=== PATIENT | male | born 1965 ===

== ENCOUNTER 2022-07-24 09:57 | Outpatient (REF) | payer BC, SELFPAY ==
--- NOTE | ~2022-07-24 | US_ITS ---
EXAMINATION: US ABDOMEN LIMITED WITH LIVER ELASTOGRAPHY CLINICAL INFORMATION: Abnormal LFTs. COMPARISON: None available. TECHNIQUE: Real-time imaging of the abdominal viscera. Noninvasive ultrasound liver fibrosis assessment is performed using Leatha ElastPQ point quantification shear wave elastography (2D-SWE) with a C5-2 MHz transducer. Multiple elastography samples are obtained. FINDINGS: PANCREAS: The pancreas is completely obscured by overlying gas. LIVER: The liver demonstrates normal size, contour and diffuse increased echogenicity. No focal lesion or intrahepatic biliary duct dilatation. The right lobe measures 14.4 cm in length. The left lobe measures 8.12 cm in length. Portal flow is hepatopedal. Shear wave liver elastography median stiffness is 1.73 m/s (reference: normal median stiffness is 1.3 m/s or less). IQR/median stiffness to assess sampling precision is 0.13 (reference: good quality data set is IQR/median stiffness of 0.15 or less). GALLBLADDER: There is a nonmobile echogenic small lesion along the inner gallbladder wall suggestive of adenomyomatosis, especially in the fundus. The gallbladder is physiologically distended without evidence of stones, sludge, polyps, wall thickening or pericholecystic fluid. COMMON BILE DUCT: Normal in caliber measuring 0.22 cm in diameter. RIGHT KIDNEY: Normal. No hydronephrosis. No renal calculi or focal parenchymal lesions. The kidney measures 11.3 cm in maximum dimension. FREE FLUID: None. US/US abdomen hogan w elastography IMPRESSION: 1. Hepatic steatosis without focal lesion. 2. Adenomyomatosis gallbladder fundus. No echogenic stones seen. 3. Liver elastography: Median liver stiffness measures 1.73 corresponding to cACLD (suggestive. REFERENCE: Society of Radiologists in Ultrasound Liver Stiffness Thresholds (2020): LIVER STIFFNESS THRESHOLDS: *Liver Stiffness equal or less than 1.3 m/s: High probability of being normal. *Liver Stiffness less than 1.7 m/s: In the absence of other known clinical signs, rules out compensated advanced chronic liver disease. *Liver Stiffness 1.7-2.1 m/s: Suggestive of compensated advanced chronic liver disease but need further test for confirmation. *Liver Stiffness over 2.1 m/s: Rules in compensated advanced chronic liver disease. *Liver Stiffness over 2.4 m/s: Suggestive of clinically significant portal hypertension. QUALITY OF DATA SET: *IQR/Median value equal or less than 0.15 implies a quality data set. *IQR/Median value over 0.15 implies a poor quality data set. SIGNIFICANT CHANGE FROM PRIOR EXAM: Significant change if liver stiffness measurement is 10% or greater from prior exam. OTHER CONSIDERATIONS: The stage of liver fibrosis may be overestimated in the setting of acute hepatitis, liver inflammation, elevated liver function tests, hepatic vascular congestion, obstructive cholestasis, non-fasting state, and infiltrative diseases such as amyloidosis and lymphoma. In some patients with NAFLD, the liver stiffness thresholds for compensated advanced chronic liver disease may be lower. In causes other than viral hepatitis and NAFLD, liver stiffness thresholds are not well established.
== END 2022-07-24 09:58 | disposition home or self-care (01) ==
LOC: HO.US 09:57
PROVIDERS: PCP Family Medicine; Visit Provider Family Medicine
DX: R74.8 Abnormal levels of other serum enzymes (principal)
CPT/HCPCS: 76705; 76981

== ENCOUNTER 2022-10-25 12:32 | Outpatient (REF) | payer BC, SELFPAY ==
[2022-10-25 17:05] LABS: Alanine Aminotransferase 23 U/L (0-40); Albumin Level 4.3 g/dL (3.5-5.0); Alkaline Phosphatase 52 U/L (39-117); Anion Gap 10 (12-20); Aspartate Amino Transferase 19 U/L (5-37); Bilirubin Total 1.2 mg/dL (0.0-1.0); Blood Urea Nitrogen 17 mg/dL (9-16); Calcium 9.8 mg/dL (8.4-10.2); Carbon Dioxide 27 mmol/L (22-29); Chloride 107 mmol/L (96-108); Estimated Glomerular Filt Rate > 60; Glucose Random 93 mg/dL (60-115); Potassium 4.2 mmol/L (3.3-5.1); Sodium 140 mmol/L (135-145); Total Protein 7.1 g/dL (6.5-8.0)
== END 2022-10-25 12:33 | disposition home or self-care (01) ==
LOC: HO.HMGCLDS 12:32
PROVIDERS: PCP Family Medicine; Visit Provider Family Medicine
DX: R74.8 Abnormal levels of other serum enzymes (principal)
CPT/HCPCS: 36415; 80053

== ENCOUNTER 2022-10-31 14:25 | Outpatient (AMB) | payer BC, SELFPAY ==
[2022-10-31 14:39] VITALS: BP 120/68; PULSE 85; O2SAT 99; BMI 23.7
--- NOTE | 2022-10-31 14:39 | MHC.PC.OV ---
Vital Signs 10/31/22 14:39 Height 5 ft 10 in Weight 165 lb BMI 23.7 BP 120/68 Blood Pressure Location Lt brachial Position Standing Pulse 85 Pulse Source Pulse Oximeter Pulse Oximetry (%) 99 Oxygen Delivery Method Room Air Intake Visit Reasons: f/u elevated liver enzymes Intake Note: Patient is here for follow up for labs. Allergies Seasonal Allergies Allergy (Verified 10/31/22 14:40) sneezing Tobacco use date assessed: 10/31/22 Dental Screening Dental Screen Date: 10/31/22 Did you have a dental visit in the last 12 months?: Yes Did you have a dental problem in the last 6 months where you did not have access to dental care?: No Was dental information given to patient?: Patient has dentist HPI f/u elevated liver enzymes HPI Details 57 y/o male presents to f/u elevated liver enzymes. Labs were drawn 10/25/22. Reviewed labs with pt. Liver enzymes now within normal range. 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 Yg Israel, Germaine Nava, Good Kwong and colleagues, with an educational dontae from [employer]. Physical exam (Primary Care) Vital Signs: Last Vital Signs Pulse 85 10/31/22 14:39 BP 120/68 10/31/22 14:39 Pulse Ox 99 10/31/22 14:39 Oxygen Delivery Method Room Air 10/31/22 14:39 BMI result Body Mass Index 26.5 Tobacco/Smoking Status: Tobacco use Status Tobacco use date assessed 10/31/22 10/31/22 14:45 Patient Tobacco Use Status Never used Tobacco 10/31/22 14:45 e-Cigarette/Vaping Use Never Used 10/31/22 14:45 Thrive Assessment: Date of Thrive Assessment Date Thrive assessed 02/26/22 10/31/22 14:45 Assessment and Plan Assessment & Plan (1) Elevated liver enzymes: Code(s): R74.8 - Abnormal levels of other serum enzymes Plan: Liver enzymes had been significantly elevated and his ultrasound showed hepatic steatosis. Patient has been working on weight loss and has lost about 20 lb. Liver enzymes now in normal range Encouraged ongoing weight control Hydrate well. Alcohol in moderation; he is going on and camping trip and would like to have 1 beer per day Will continue to keep an eye on this Coding Level of Care Code Est Pt Level 3 (85990) Diagnoses Elevated liver enzymes R74.8
== END 2022-10-31 14:58 | disposition home or self-care (01) ==
PROVIDERS: PCP Family Medicine; Visit Provider Family Medicine
DX: R74.8 Abnormal levels of other serum enzymes (principal)
CPT/HCPCS: 99213

== ENCOUNTER 2023-01-30 14:48 | Outpatient (AMB) | payer BC, SELFPAY ==
[2023-01-30 14:56] VITALS: BP 118/74; PULSE 97; O2SAT 97; BMI 24.2
--- NOTE | 2023-01-30 14:56 | A.OFFPC_ITS ---
Vital Signs 01/30/23 14:56 Height 5 ft 10 in Weight 168 lb 8 oz BMI 24.2 BP 118/74 Blood Pressure Location Lt brachial Position Sitting Pulse 97 Pulse Source Pulse Oximeter Pulse Oximetry (%) 97 Oxygen Delivery Method Room Air Intake Visit Reasons: f/u hypertension and chronic conditions Intake Note: Patient is here for follow up on hypertension and chronic conditions. Allergies Seasonal Allergies Allergy (Verified 01/30/23 14:58) sneezing Tobacco use date assessed: 01/30/23 HPI f/u hypertension and chronic conditions HPI Details 57 y/o male presents to f/u hypertension and chronic conditions. Blood pressure today 118/74. He is on lisinopril 20mg daily. He continues to watch the salt/sodium in his diet. He denies any problems with his medication regimen. HPI Comments History of Present Illness Details Documentation assistance for Lio Trinh MD, was provided by Raphael Marie, Police Surgeon on 01/30/2023 3:19 PM EST. I, Dr. Trinh, have read, observed, and verified documentation. 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 Yg Israel, Germaine Nava, Good Kwong and colleagues, with an educational dontae from [employer]. Review of Systems Const Denies chills, Denies fatigue, Denies fever(s), Denies headache(s) and Denies weakness ENT Denies dizziness and Denies headache(s) Card Denies dyspnea Resp Denies cough, Denies dyspnea, Denies wheezing and Denies other (shortness of breath) Musc Denies numbness and Denies tingling Neuro Denies dizziness, Denies headache(s), Denies numbness, Denies tingling and Denies weakness Psych Denies anxiety and Denies depression Endo Denies fatigue Aller/Immun Denies wheezing Physical exam (Primary Care) Vital Signs: Last Vital Signs Pulse 97 01/30/23 14:56 BP 118/74 01/30/23 14:56 Pulse Ox 97 01/30/23 14:56 Oxygen Delivery Method Room Air 01/30/23 14:56 BMI result Body Mass Index 24.2 Tobacco/Smoking Status: Tobacco use Status Tobacco use date assessed 01/30/23 01/30/23 15:03 Patient Tobacco Use Status Never used Tobacco 01/30/23 15:03 e-Cigarette/Vaping Use Never Used 01/30/23 15:03 Thrive Assessment: Date of Thrive Assessment Date Thrive assessed 02/26/22 01/30/23 15:03 Const General: well developed; No acute distress Nutritional Appearance: well nourished Orientation/consciousness: patient oriented x3 HENMT Head: Yes normocephalic and Yes atraumatic Eyes General: appearance normal, both eyes and all related structures Pupils: Equal, round and reactive pupils present EOM: EOMs intact bilaterally Resp Effort & Inspection: normal respiratory effort Auscultation: clear to auscultation bilaterally Cardio Rate: regular rate Rhythm: regular rhythm Heart sounds: S1 normal heart sound present, S2 normal heart sound present, no gallops, no murmurs and no rubs Neuro General: patient oriented x3 and gait normal Cranial nerves: Yes Equal, round and reactive pupils present Psych Affect: normal affect Assessment and Plan Assessment & Plan (1) Essential hypertension: Code(s): I10 - Essential (primary) hypertension Plan: Blood?pressure?is?well?controlled.??Goal?is?less?than?140/90 Continue?current?medication Orders: Orders Comprehensive [place]. Panel Fast Today R74.01 - Elevation of levels of liver transaminase levels, Z00.00 - Encounter for general adult medical examination without abnormal findings Microalbumin, Random (w Creat) Today I10 - Essential (primary) hypertension Lipid Panel Today E78.5 - Hyperlipidemia, unspecified, Z00.00 - Encounter for general adult medical examination without abnormal findings UA and rflx microscopic Today Z00.00 - Encounter for general adult medical examination without abnormal findings Thyroid Stimulating Hormone Today E03.9 - Hypothyroidism, unspecified Free T4 (Free Thyroxine) Today E03.9 - Hypothyroidism, unspecified Triiodothyronine T3 Total Today E03.9 - Hypothyroidism, unspecified Hemoglobin A1c Today R73.01 - Impaired fasting glucose, R73.03 - Prediabetes Prostate Specific Antigen Scr Today Z12.5 - Encounter for screening for malignant neoplasm of prostate Coding Level of Care Code Est Pt Level 3 (37455) Diagnoses Essential hypertension I10
== END 2023-01-30 15:28 | disposition home or self-care (01) ==
PROVIDERS: PCP Family Medicine; Visit Provider Family Medicine
DX: I10 Essential (primary) hypertension (principal)
CPT/HCPCS: 99213

== ENCOUNTER 2023-05-28 07:13 | Outpatient (REF) | payer BC, SELFPAY ==
[2023-05-28 11:41] LABS: Appearance Urine Clear; Color Urine Yellow; Glucose Urine UA Negative (Negative); Leukocyte Esterase Urine Negative (Negative); Nitrite Urine Negative (Negative); PH 5.5 (5.0-9.0); Urine Blood Negative (Negative); Urine Ketones Negative (Negative); Urine Protein Negative (Neg-Trace)
[2023-05-28 12:20] LABS: Prostate Specific Antigen Scr 0.82 ng/mL (<0.05-4.0)
[2023-05-28 12:26] LABS: Alanine Aminotransferase 31 U/L (0-40); Albumin Level 4.5 g/dL (3.5-5.0); Alkaline Phosphatase 56 U/L (39-117); Anion Gap 11 (12-20); Aspartate Amino Transferase 25 U/L (5-37); Bilirubin Total 1.7 mg/dL (0.0-1.0); Blood Urea Nitrogen 17 mg/dL (9-16); Calcium 9.7 mg/dL (8.4-10.2); Carbon Dioxide 28 mmol/L (22-29); Chloride 104 mmol/L (96-108); Cholesterol 217 mg/dL (<200); Estimated Glomerular Filt Rate > 60; Glucose Fasting 95 mg/dL (60-99); HDL Cholesterol 61 mg/dL (>40); LDL Cholesterol Calculated 141 mg/dL (<100); Potassium 4.2 mmol/L (3.3-5.1); Sodium 139 mmol/L (135-145); Total Protein 7.5 g/dL (6.5-8.0); Triglycerides 75 mg/dL (<150)
[2023-05-28 12:27] LABS: Free T4 (Free Thyroxine) 0.91 ng/dL (0.71-1.85); Thyroid Stimulating Hormone 2.77 uIU/mL (0.32-4.0)
[2023-05-28 12:37] LABS: Creatinine Urine 158.15 mg/dL; Microalbum/Creatinine Ratio Ur 6.3 ug/mg cr (<30)
[2023-05-28 15:33] LABS: Estimated Average Glucose 103 mg/dL; Hemoglobin A1c % 5.2 % (<6.0)
[2023-05-29 08:48] LABS: Triiodothyronine T3 Total 94 ng/dL (76-181)
== END 2023-05-28 07:14 | disposition home or self-care (01) ==
LOC: HO.HMGCLDS 07:13
PROVIDERS: PCP Family Medicine; Visit Provider Family Medicine
DX: Z00.00 Encounter for general adult medical examination without abnormal findings (principal); Z12.5 Encounter for screening for malignant neoplasm of prostate; R74.01 Elevation of levels of liver transaminase levels; I10 Essential (primary) hypertension; E78.5 Hyperlipidemia, unspecified; E03.9 Hypothyroidism, unspecified; R73.01 Impaired fasting glucose; R73.03 Prediabetes
CPT/HCPCS: 36415; 80053; 80061; 81003; 82043; 82570; 83036; 84153; 84439; 84443; 84480

== ENCOUNTER 2023-06-06 11:44 | Outpatient (AMB) | payer BC, SELFPAY ==
[2023-06-06 12:27] VITALS: BP 131/82; PULSE 67; O2SAT 98; BMI 24.5
--- NOTE | 2023-06-06 12:27 | A.OFFPC_ITS ---
Vital Signs 06/06/23 12:27 Height 5 ft 10 in Weight 171 lb BMI 24.5 BP 131/82 Blood Pressure Location Lt brachial Position Sitting Pulse 67 Pulse Source Pulse Oximeter Pulse Oximetry (%) 98 Oxygen Delivery Method Room Air Intake Visit Reasons: CPE with f/u labs and health maintenance Intake Note: Patient is here for his physical today, and follow up on labs. Allergies Seasonal Allergies Allergy (Verified 06/06/23 12:28) sneezing Tobacco use date assessed: 06/06/23 Dental Screening Dental Screen Date: 06/06/23 Did you have a dental visit in the last 12 months?: Yes Did you have a dental problem in the last 6 months where you did not have access to dental care?: No Was dental information given to patient?: Patient has dentist HPI CPE with f/u labs and health maintenance HPI Details 58 y/o male presents for a CPE with f/u labs and health maintenance. Labs were drawn 05/28/23. Reviewed labs with pt. Triglycerides 75. TC 217. LDL 141. HDL 61. A1c 5.2%. Thyroid levels are fine. He is on levothyroxine 25 mcg daily. Blood pressure today 131/82. He is on lisinopril 20mg daily. Pt notes he had a colonoscopy in March. HPI Comments History of Present Illness Details Documentation assistance for Lio Trinh MD, was provided by Raphael Marie, Hammersmith Helper on 06/06/2023 1:26 PM NIKHIL. Colt, Dr. Trinh, have read, observed, and verified documentation. 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 1. Little interest or pleasure in doing things: not at all 2. Feeling down, depressed, or hopeless: not at all 3. Trouble falling or staying asleep, or sleeping too much: not at all 4. Feeling tired or having little energy: not at all 5. Poor appetite or overeating: not at all 6. Feeling bad about yourself - or that you are a failure or have let yourself or your family down: not at all 7. Trouble concentrating on things, such as reading the newspaper or watching television: not at all 8. Moving or speaking so slowly that other people could have noticed. Or the opposite - being so fidgety or restless that you have been moving around a lot more than usual: not at all 9. Thoughts that you would be better off or of hurting yourself in some way: not at all Total score: 0 Depression Screening Interpretation: Negative Depression Screening Done: Yes Source: Developed by Drs. Yg Israel, Germaine Nava, Good Kwong and colleagues, with an educational dontae from [employer]. Thrive Questionnaire Date Thrive assessed: 06/06/23 I am a: Patient What is your living situation today?: I have a steady place to live Within the past 12 months, did the food you bought not last and you didn't have the money to get more?: Never true Within the past 12 months, did you worry whether your food would run out before you got money to buy more?: Never true Do you have trouble paying for medicines?: No Do you have trouble getting transportation to medical appointments?: No Do you have trouble paying your heating and electricity bill?: No Do you have trouble taking care of your child, family member or friend?: No Do you have trouble with day-to-day activities such as bathing, preparing meals, shopping, managing finances, etc.?: No Are you currently unemployed and looking for a job?: No Are you interested in more education?: No THRIVE Score: 0 AUDIT C Alcohol Use Questionnaire (AUDIT-C) 1. How often do you have a drink containing alcohol?: Monthly or less 2. How many drinks containing alcohol do you have on a typical day when you are drinking?: 1 or 2 3. How often do you have six or more drinks on one occasion?: Never Total Score: 1 PAOLA-7 AMB Questionnaire PAOLA-7 Date PAOLA - 7 assessed: 06/06/23 Feeling nervous, anxious, or on edge: 0 = Not at all Not being able to stop or control worryin = Not at all Worrying too much about different things: 0 = Not at all Trouble relaxin = Not at all Being so restless that it is hard to sit still: 0 = Not at all Becoming easily annoyed or irritable: 0 = Not at all Feeling afraid as if something awful might happen: 0 = Not at all Total PAOLA-7 score (0-4 normal; 5-9 mild; 10-14 moderate; 15-21 severe): 0 Source: Developed by Drs. Yg Israel, Germaine Nava, Good Kwong and colleagues, with an educational dontae from [employer]. Review of Systems Const Denies chills, Denies fatigue, Denies fever(s), Denies headache(s) and Denies weakness Eyes Denies change in vision ENT Denies dizziness, Denies headache(s), Denies hearing loss, Denies nasal congestion, Denies sinus pain, Denies sinus pressure and Denies sore throat Card Denies chest pain, Denies lightheadedness, Denies dyspnea and Denies other (palpitations) Resp Denies cough, Denies dyspnea and Denies wheezing GI Denies abdominal pain, Denies melena, Denies hematochezia, Denies change in bowel habits, Denies dyspepsia and Denies nausea Denies hematuria and Denies dysuria Musc Denies abnormal gait, Denies myalgias, Denies arthralgias, Denies numbness and Denies tingling Skin/Breast Denies rash, Denies unusual bruising and Denies wounds Neuro Denies abnormal gait, Denies dizziness, Denies headache(s), Denies memory loss, Denies numbness, Denies Sensory deficit (Neuro), Denies tingling and Denies weakness Psych Denies anxiety, Denies depression and Denies memory loss Endo Denies cold intolerance, Denies fatigue, Denies heat intolerance, Denies polydipsia and Denies polyuria Lázaro/Lymph Denies easy bleeding and Denies easy bruising Aller/Immun Denies wheezing Physical exam (Primary Care) Vital Signs: Last Vital Signs Pulse 67 06/06/23 12:27 BP 131/82 06/06/23 12:27 Pulse Ox 98 06/06/23 12:27 Oxygen Delivery Method Room Air 06/06/23 12:27 BMI result Body Mass Index 24.5 Tobacco/Smoking Status: Tobacco use Status Tobacco use date assessed 06/06/23 06/06/23 12:30 Patient Tobacco Use Status Never used Tobacco 06/06/23 12:30 e-Cigarette/Vaping Use Never Used 06/06/23 12:30 PHQ-9: PHQ-9 Score PHQ-9: Total score 0 06/06/23 13:20 Depression Screening Interpretation: Negative Thrive Assessment: Date of Thrive Assessment Date Thrive assessed 06/06/23 06/06/23 12:34 Const General: no acute distress, well developed, alert and awake Nutritional Appearance: well nourished Orientation/consciousness: patient oriented x3 HENMT Head: Yes normocephalic and Yes atraumatic Ears: hearing grossly normal bilaterally and TM's normal bilaterally General nose exam: Normal external nose present and Normal nares present Mouth: Normal oral and palatal mucosa present and moist mucous membranes Teeth and gingiva: dentition normal Throat: Yes posterior oropharynx normal Eyes General: appearance normal, both eyes and all related structures Pupils: Equal, round and reactive pupils present and Pupil accommodation reflex normal EOM: EOMs intact bilaterally Neck Neck: Yes normal visual inspection, Yes no lymphadenopathy and Yes trachea midline Thyroid: Thyroid normal Carotids: no bruits Lymphatic: no lymphadenopathy noted Chest Chest palpation & inspection: normal inspection of the chest Resp Effort & Inspection: normal respiratory effort Auscultation: clear to auscultation bilaterally Cardio Rate: regular rate Rhythm: regular rhythm Heart sounds: S1 normal heart sound present, S2 normal heart sound present, no gallops, no murmurs and no rubs Bruits: no abdominal aortic bruits and no carotid bruits GI Palpation (GI): No Abdominal aortic bruit present, Soft to palpation, nontender, No hepatosplenomegaly present and No Rebound tenderness present Auscultation: normal bowel sounds General: Yes no CVA tenderness Back/Spine/Pelvis Back: no CVA tenderness Cervical Spine: cervical ROM normal and No Cervical spine tenderness Thoracic/Lumbar Spine: thoraco-lumbar ROM normal, No pain with thoraco-lumbar ROM, No thoracic spinal tenderness and No lumbar spinal tenderness Skin Lesions: no lesions Rashes: no rashes Trauma: no lacerations or abrasions Wounds: no wounds Nails: normal Neuro General: patient oriented x3 Cranial nerves: Yes Equal, round and reactive pupils present Cognition (Neuro): normal cognition Gait exam (Neuro): Normal gait present Motor exam (neuro): 5/5 motor strength present throughout Sensory Exam: No Sensory deficit (Neuro) Deep tendon reflexes (DTR's): Right patellar reflex intensity grade: 2+ and Left patellar reflex intensity grade: 2+ Extrem General: Yes normal to inspection and No edema Psych Appearance: grossly normal Affect: normal affect Attitude: cooperative Thought process: Normal thought process present Assessment and Plan Assessment & Plan (1) Adult general medical exam: Code(s): Z00.00 - Encounter for general adult medical examination without abnormal findings Plan: 58-year-old?male?presents?for?complete?physical?exam Encouraged?healthy?diet?with?active?lifestyle?and?plenty?of?exercise (2) Essential hypertension: Code(s): I10 - Essential (primary) hypertension Plan: Blood?pressure?is?controlled.??Goal?is?less?than?140/90 Encouraged?diet,?exercise,?weight?loss?and?salt/sodium?avoidance (3) Elevated fasting blood sugar: Code(s): R73.01 - Impaired fasting glucose Plan: A1c?was?5.2%?which?is?in?normal?range Encouraged?diet,?exercise?and?weight?loss (4) Hypothyroidism: Code(s): E03.9 - Hypothyroidism, unspecified Plan: Thyroid?hormone?levels?are?all?within?normal?limits.??Continue?levothyroxine?as? prescribed (5) Hyperlipidemia: Code(s): E78.5 - Hyperlipidemia, unspecified Plan: LDL?cholesterol?is?high.??HDL?ratios?are?okay Encouraged?diet,?exercise? and?weight?loss.??Encouraged?diet?low?in?saturated?fats?and?cholesterol. Will?recheck?in?a?few?months (6) Screening for colon cancer: Code(s): Z12.11 - Encounter for screening for malignant neoplasm of colon Plan: Patient?had?colonoscopy?in?March?with??Gray He?is?followed?Q?5?years? (7) Screening for prostate cancer: Code(s): Z12.5 - Encounter for screening for malignant neoplasm of prostate Plan: PSA?was?within?normal?limits.??Will?continue?annual?screening Coding Level of Care Code Est Pt Level 3 (27344) Est Pt Prev Care 40-64y(69911) Diagnoses Adult general medical exam Z00.00 Essential hypertension I10 Elevated fasting blood sugar R73.01 Hypothyroidism E03.9 Hyperlipidemia E78.5 Screening for colon cancer Z12.11 Screening for prostate cancer Z12.5
== END 2023-06-06 13:41 | disposition home or self-care (01) ==
PROVIDERS: PCP Family Medicine; Visit Provider Family Medicine
DX: Z00.00 Encounter for general adult medical examination without abnormal findings (principal); I10 Essential (primary) hypertension; R73.01 Impaired fasting glucose; E03.9 Hypothyroidism, unspecified; E78.5 Hyperlipidemia, unspecified; Z12.11 Encounter for screening for malignant neoplasm of colon; Z12.5 Encounter for screening for malignant neoplasm of prostate
CPT/HCPCS: 99396

== ENCOUNTER 2023-08-28 06:25 | Outpatient (REF) | payer BC, SELFPAY ==
[2023-08-28 10:49] LABS: Alanine Aminotransferase 33 U/L (0-40); Albumin Level 4.3 g/dL (3.5-5.0); Alkaline Phosphatase 68 U/L (39-117); Anion Gap 11 (12-20); Aspartate Amino Transferase 28 U/L (5-37); Bilirubin Total 1.9 mg/dL (0.0-1.0); Blood Urea Nitrogen 19 mg/dL (9-16); Calcium 9.4 mg/dL (8.4-10.2); Carbon Dioxide 26 mmol/L (22-29); Chloride 104 mmol/L (96-108); Cholesterol 153 mg/dL (<200); Estimated Glomerular Filt Rate > 60; Glucose Fasting 97 mg/dL (60-99); HDL Cholesterol 57 mg/dL (>40); LDL Cholesterol Calculated 83 mg/dL (<100); Potassium 4.3 mmol/L (3.3-5.1); Sodium 137 mmol/L (135-145); Triglycerides 66 mg/dL (<150)
== END 2023-08-28 06:26 | disposition home or self-care (01) ==
LOC: HO.HMGCLDS 06:25
PROVIDERS: PCP Family Medicine; Visit Provider Family Medicine
DX: Z00.00 Encounter for general adult medical examination without abnormal findings (principal); R74.01 Elevation of levels of liver transaminase levels; E78.5 Hyperlipidemia, unspecified
CPT/HCPCS: 36415; 80053; 80061

== ENCOUNTER 2023-09-05 14:15 | Outpatient (AMB) | payer BC, SELFPAY ==
[2023-09-05 14:27] VITALS: BP 116/68; PULSE 72; O2SAT 97; BMI 24.9
--- NOTE | 2023-09-05 14:27 | A.OFFPC_ITS ---
Vital Signs 09/05/23 14:27 Height 5 ft 10 in Weight 173 lb 8 oz BMI 24.9 BP 116/68 Blood Pressure Location Lt brachial Position Sitting Pulse 72 Pulse Source Pulse Oximeter Pulse Oximetry (%) 97 Oxygen Delivery Method Room Air Intake Visit Reasons: f/u HLD, hypertension Intake Note: Patient is here to follow up on cholesterol and hypertension. Allergies Seasonal Allergies Allergy (Verified 09/05/23 14:30) sneezing Medication List - Last Reconciled 09/05/23 by Lio Trinh MD atorvastatin 40 mg PO BEDTIME 30 days levothyroxine 25 mcg PO DAILY 90 days lisinopril 20 mg PO DAILY 90 days Tobacco use date assessed: 09/05/23 Dental Screening Dental Screen Date: 06/06/23 HPI f/u HLD, hypertension HPI Details 58 y/o male presents to f/u HLD, hyperte nsion. Labs were drawn 08/28/23. Reviewed labs with pt. Triglycerides 66. TC 153. LDL improved from 141 to 83. HDL 57. He is on artovastatin 40mg. Blood pressure today 116/68. He is on lisinopril 20mg daily. Has complaints of GERD. 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 Yg Israel, Germaine Nava, Good Kwong and colleagues, with an educational dontae from [employer]. Review of Systems Const Denies chills, Denies fatigue, Denies fever(s), Denies headache(s) and Denies weakness ENT Denies dizziness and Denies headache(s) Card Denies dyspnea Resp Denies cough, Denies dyspnea, Denies wheezing and Denies other (shortness of breath) Musc Denies numbness and Denies tingling Neuro Denies dizziness, Denies headache(s), Denies numbness, Denies tingling and Denies weakness Psych Denies anxiety and Denies depression Endo Denies fatigue Aller/Immun Denies wheezing Physical exam (Primary Care) Vital Signs: Last Vital Signs Pulse 72 09/05/23 14:27 BP 116/68 09/05/23 14:27 Pulse Ox 97 09/05/23 14:27 Oxygen Delivery Method Room Air 09/05/23 14:27 BMI result Body Mass Index 24.9 Tobacco/Smoking Status: Tobacco use Status Tobacco use date assessed 09/05/23 09/05/23 14:35 Patient Tobacco Use Status Never used Tobacco 09/05/23 14:35 e-Cigarette/Vaping Use Never Used 09/05/23 14:35 Thrive Assessment: Date of Thrive Assessment Date Thrive assessed 06/06/23 09/05/23 14:35 Const General: well developed; No acute distress Nutritional Appearance: well nourished Orientation/consciousness: patient oriented x3 [facility] Head: Yes normocephalic and Yes atraumatic Eyes General: appearance normal, both eyes and all related structures Pupils: Equal, round and reactive pupils present EOM: EOMs intact bilaterally Resp Effort & Inspection: normal respiratory effort Auscultation: clear to auscultation bilaterally Cardio Rate: regular rate Rhythm: regular rhythm Heart sounds: S1 normal heart sound present, S2 normal heart sound present, no gallops, no murmurs and no rubs Neuro General: patient oriented x3 and gait normal Cranial nerves: Yes Equal, round and reactive pupils present Psych Affect: normal affect Assessment and Plan Assessment & Plan (1) Hyperlipidemia: Code(s): E78.5 - Hyperlipidemia, unspecified Plan: Lipids?now?well?controlled?on?atorvastatin?40?mg?daily Continue?current?medication (2) Essential hypertension: Code(s): I10 - Essential (primary) hypertension Plan: Blood?pressure?is?controlled.??Goal?is?less?than?140/90 Continue?current?medicine (3) GERD (gastroesophageal reflux disease): Code(s): K21.9 - Gastro-esophageal reflux disease without esophagitis Plan: Some?increase?in?GERD?symptoms. Start?omeprazole Medications: New omeprazole 40 mg PO DAILY 90 caps 2RF 90 days Coding Level of Care Code Est Pt Level 4 (46084) Diagnoses Hyperlipidemia E78.5 Essential hypertension I10 GERD (gastroesophageal reflux disease) K21.9
== END 2023-09-05 15:07 | disposition home or self-care (01) ==
PROVIDERS: PCP Family Medicine; Visit Provider Family Medicine
DX: E78.5 Hyperlipidemia, unspecified (principal); I10 Essential (primary) hypertension; K21.9 Gastro-esophageal reflux disease without esophagitis
CPT/HCPCS: 99214

== ENCOUNTER 2023-12-12 13:19 | Outpatient (AMB) | payer BC, SELFPAY ==
--- NOTE | 2023-12-12 13:34 | MHC.PC.OV ---
Vital Signs 12/12/23 13:35 Height 5 ft 10 in Weight 173 lb 8 oz BMI 24.9 BP 130/70 Blood Pressure Location Rt brachial Position Sitting Respiration 16 Pulse 69 Pulse Source Pulse Oximeter Temp 97.8 F Temp Source Oral Pulse Oximetry (%) 97 Oxygen Delivery Method Room Air Intake Visit Reasons: f/u hypertension Intake Note: htn f/u Allergies Seasonal Allergies Allergy (Verified 12/12/23 13:34) sneezing Tobacco use date assessed: 09/05/23 Dental Screening Dental Screen Date: 06/06/23 HPI f/u hypertension HPI Details Patient?presents?to?follow-up?hypertension He?is?taking?lisinopril?as?prescribed?and?without?problems. Blood?pressure?today?130/70?is?a?little?higher?than?previously. Also?taking?atorvastatin?for?cholesterol?without?any?problems. He?is?watching?salt?and?sodium?in?his?diet.??Watching?cholesterol?in?his?diet. 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 How many drinks containing alcohol do you have on a typical day when you are drinking?: 1 or 2 3. How often do you have six or more drinks on one occasion?: Never Total Score: 0 PAOLA-7 AMB Questionnaire PAOLA-7 Date PAOLA - 7 assessed: 06/06/23 Source: Developed by Drs. Yg Israel, Germaine Nava, Good Kwong and colleagues, with an educational dontae from [employer]. Review of Systems Const Denies chills, Denies fatigue, Denies fever(s), Denies headache(s) and Denies weakness ENT Denies dizziness and Denies headache(s) Card Denies chest pain, Denies lightheadedness, Denies dyspnea and Denies other (Palpitations) Resp Denies cough, Denies dyspnea, Denies wheezing and Denies other ( shortness of breath) Musc Denies numbness and Denies tingling Neuro Denies dizziness, Denies headache(s), Denies numbness, Denies tingling, Denies paresthesias and Denies weakness Psych Denies anxiety and Denies depression Endo Denies fatigue Aller/Immun Denies wheezing Physical exam (Primary Care) Vital Signs: Last Vital Signs Temp 97.8 F 12/12/23 13:35 Pulse 69 12/12/23 13:35 Resp 16 12/12/23 13:35 BP 130/70 12/12/23 13:35 Pulse Ox 97 12/12/23 13:35 Oxygen Delivery Method Room Air 12/12/23 13:35 BMI result Body Mass Index 24.9 Tobacco/Smoking Status: Tobacco use Status Tobacco use date assessed 09/05/23 12/12/23 13:38 Patient Tobacco Use Status Never used Tobacco 12/12/23 13:38 e-Cigarette/Vaping Use Never Used 12/12/23 13:38 Thrive Assessment: Date of Thrive Assessment Date Thrive assessed 06/06/23 12/12/23 13:38 Const General: no acute distress and well developed Nutritional Appearance: well nourished Orientation/consciousness: [facility] Head: Yes normocephalic and Yes atraumatic Eyes General: appearance normal, both eyes and all related structures Pupils: Equal, round and reactive pupils present EOM: EOMs intact bilaterally Resp Effort & Inspection: normal respiratory effort Auscultation: clear to auscultation bilaterally Cardio Rate: regular rate Rhythm: regular rhythm Heart sounds: S1 normal heart sound present, S2 normal heart sound present, no gallops, no murmurs and no rubs Neuro General: patient oriented x3 and gait normal Cranial nerves: Yes Equal, round and reactive pupils present Psych Affect: normal affect Assessment and Plan Assessment & Plan (1) Essential hypertension: Code(s): I10 - Essential (primary) hypertension Plan: Blood?pressure?is?controlled.??Goal?is?less?than?140/90 Continue?current?medication Watch?salt/sodium?in?diet Orders: Orders Microalbumin, Random (w Creat) Today I10 - Essential (primary) hypertension Prostate Specific Antigen Scr Today Z12.5 - Encounter for screening for malignant neoplasm of prostate UA and rflx microscopic Today Z00.00 - Encounter for general adult medical examination without abnormal findings Comprehensive [place]. Panel Fast Today Z00.00 - Encounter for general adult medical examination without abnormal findings Lipid Panel Today Z00.00 - Encounter for general adult medical examination without abnormal findings Complete Blood Count Auto Diff Today Z00.00 - Encounter for general adult medical examination without abnormal findings Thyroid Stimulating Hormone Today E03.9 - Hypothyroidism, unspecified Triiodothyronine T3 Total Today E03.9 - Hypothyroidism, unspecified Free T4 (Free Thyroxine) Today E03.9 - Hypothyroidism, unspecified Coding Level of Care Code Est Pt Level 3 (29517) Diagnoses Essential hypertension I10
[2023-12-12 13:35] VITALS: BP 130/70; PULSE 69; RESP 16; TEMP 36.6; O2SAT 97; BMI 24.9
== END 2023-12-12 13:54 | disposition home or self-care (01) ==
PROVIDERS: PCP Family Medicine; Visit Provider Family Medicine
DX: I10 Essential (primary) hypertension (principal)

== ENCOUNTER → 2023-12-12 13:19 | Outpatient (BNVA) | payer BC, SELFPAY | PROVIDERS: PCP Family Medicine; Visit Provider Family Medicine | DX: I10 Essential (primary) hypertension (principal); Z79.899 Other long term (current) drug therapy ==

== ENCOUNTER 2024-03-31 07:11 | Outpatient (REF) | payer BC, SELFPAY ==
[2024-03-31 09:54] LABS: MANUAL DIFF FLAG NO
[2024-03-31 10:05] LABS: Appearance Urine Clear; Color Urine Yellow; Glucose Urine UA Negative (Negative); Leukocyte Esterase Urine Negative (Negative); Nitrite Urine Negative (Negative); PH 5.5 (5.0-9.0); Specific Gravity - Urine 1.015 (1.005-1.025); Urine Blood Negative (Negative); Urine Ketones Negative (Negative); Urine Protein Negative (Neg-Trace)
[2024-03-31 10:06] LABS: Basophils Absolute Auto 0.1 X10*3/uL (0.0-0.2); Basophils Percent Auto 0.9 % (0-2); Eosinophils Absolute Auto 0.3 X10*3/uL (0.0-0.4); Eosinophils Percent Auto 3.5 % (0-4); Hematocrit 46.2 % (42.0-52.0); Hemoglobin 15.9 g/dl (14.0-18.0); Imm Gran Abs Auto 0.04 X10*3/uL (0.00-0.03); Imm Gran Pct Auto 0.5 % (0.0-0.4); Lymphocytes Absolute Auto 3.6 X10*3/uL (1.2-4.9); Lymphocytes Percent Auto 41.7 % (20-40); Mean Corpuscular HGB Conc 34.4 g/dl (31.0-36.0); Mean Corpuscular Hemoglobin 27.4 pg (27.0-33.0); Mean Corpuscular Volume 79.5 fL (80.0-98.0); Mean Platelet Volume 9.7 fL (9.4-12.4); Monocytes Percent Auto 11.9 % (2-11); Neutrophils Absolute Auto 3.6 x10*3/uL (2.0-8.3); Neutrophils Percent Auto 41.5 % (45-73); Platelet Count 323 X10*3/uL (160-400); Red Blood Count 5.81 X10*6/uL (4.60-5.80); Red Cell Distribution Width 12.5 % (11.0-16.0); White Blood Count 8.7 X10*3/uL (4.8-10.8)
[2024-03-31 10:19] LABS: Albumin Level 4.6 g/dL (3.5-5.0); Anion Gap 16 (12-20); Aspartate Amino Transferase 42 U/L (5-37); Bilirubin Total 1.8 mg/dL (0.0-1.0); Blood Urea Nitrogen 25 mg/dL (9-16); Calcium 9.7 mg/dL (8.4-10.2); Carbon Dioxide 25 mmol/L (22-29); Chloride 92 mmol/L (96-108); Cholesterol 138 mg/dL (<200); Estimated Glomerular Filt Rate > 60; Glucose Fasting 102 mg/dL (60-99); HDL Cholesterol 53 mg/dL (>40); LDL Cholesterol Calculated 73 mg/dL (<100); Potassium 4.8 mmol/L (3.3-5.1); Sodium 128 mmol/L (135-145); Triglycerides 60 mg/dL (<150)
[2024-03-31 10:30] LABS: Creatinine Urine 102.56 mg/dL; Microalbum/Creatinine Ratio Ur 20.4 ug/mg cr (<30)
[2024-03-31 10:37] LABS: Prostate Specific Antigen Scr 0.62 ng/mL (<0.05-4.0)
[2024-03-31 10:51] LABS: Alanine Aminotransferase 42 U/L (0-40); Alkaline Phosphatase 86 U/L (39-117); Free T4 (Free Thyroxine) 1.25 ng/dL (0.71-1.85); Thyroid Stimulating Hormone 3.47 uIU/mL (0.32-4.0)
[2024-04-01 10:34] LABS: Triiodothyronine T3 Total 82 ng/dL (76-181)
== END 2024-03-31 07:12 | disposition home or self-care (01) ==
LOC: HO.HMGCLDS 07:11
PROVIDERS: PCP Family Medicine; Visit Provider Family Medicine
DX: Z00.00 Encounter for general adult medical examination without abnormal findings (principal); E03.9 Hypothyroidism, unspecified; I10 Essential (primary) hypertension; Z12.5 Encounter for screening for malignant neoplasm of prostate
CPT/HCPCS: 36415; 80053; 80061; 81003; 82043; 82570; 84153; 84439; 84443; 84480; 85025

== ENCOUNTER → 2024-04-01 15:32 | Outpatient (BNVA) | payer BC, SELFPAY | PROVIDERS: PCP Family Medicine ==

== ENCOUNTER 2024-04-14 14:23 | Outpatient (AMB) | payer BC, SELFPAY ==
--- NOTE | 2024-04-14 14:28 | MHC.PC.OV ---
Vital Signs 04/14/24 14:31 Height 5 ft 10 in Weight 177 lb BMI 25.4 BP 110/70 Blood Pressure Location Rt brachial Position Sitting Respiration 14 Pulse 94 Pulse Source Pulse Oximeter Temp 98.4 F Temp Source Oral Pulse Oximetry (%) 96 Oxygen Delivery Method Room Air Intake Visit Reasons: htn 4 months Intake Note: 4month follow up for htn and lab review Allergies Seasonal Allergies Allergy (Verified 04/14/24 14:29) sneezing Medication List - Last Reconciled 04/14/24 by Lio Trinh MD atorvastatin 40 mg PO BEDTIME 30 days hydrochlorothiazide 25 mg PO QAM 30 days levothyroxine 25 mcg PO DAILY 90 days lisinopril 20 mg PO DAILY 90 days omeprazole 20 mg PO DAILY Tobacco use date assessed: 09/05/23 Dental Screening Dental Screen Date: 06/06/23 HPI htn 4 months HPI Details 59 y/o male presents to f/u hypertension. Blood pressure today 110/70, 94p. He is on lisinopril 20mg, HCTZ 25mg. Labs drawn 03/31/24. Reviewed labs with pt. RBC mildly high at 5.81. Sodium mildly low at 128 mmol/L. Elevated liver enzymes - AST 42, ALT 42. Triglycerides 60. TC 138. LDL 73. HDL 53. PSA 0.62. HPI Comments History of Present Illness Details Documentation assistance for Lio Trinh MD, was provided by Raphael Marie,? [employer] on 04/14/2024 at 2:37 PM EST. I, Dr. Trinh, have read, observed, and verified documentation. ?? 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 1. Little interest or pleasure in doing things: not at all 2. Feeling down, depressed, or hopeless: not at all 3. Trouble falling or staying asleep, or sleeping too much: not at all 4. Feeling tired or having little energy: not at all 5. Poor appetite or overeating: not at all 6. Feeling bad about yourself - or that you are a failure or have let yourself or your family down: not at all 7. Trouble concentrating on things, such as reading the newspaper or watching television: not at all 8. Moving or speaking so slowly that other people could have noticed. Or the opposite - being so fidgety or restless that you have been moving around a lot more than usual: not at all 9. Thoughts that you would be better off or of hurting yourself in some way: not at all Total score: 0 Source: Developed by Drs. Yg Israel, Germaine Nava, Good Kwong and colleagues, with an educational dontae from [employer]. Thrive Questionnaire Date Thrive assessed: 04/08/24 I am a: Patient What is your living situation today?: I have a steady place to live Within the past 12 months, did the food you bought not last and you didn't have the money to get more?: Never true Within the past 12 months, did you worry whether your food would run out before you got money to buy more?: Never true Do you have trouble paying for medicines?: No Do you have trouble getting transportation to medical appointments?: No Do you have trouble paying your heating and electricity bill?: No Do you have trouble taking care of your child, family member or friend?: No Do you have trouble with day-to-day activities such as bathing, preparing meals, shopping, managing finances, etc.?: No Are you currently unemployed and looking for a job?: No Are you interested in more education?: No Please select the resources that you would like help with: None Currently or been in a relationship where the following occur: No concerns reported THRIVE Score: 0 AUDIT C Alcohol Use Questionnaire (AUDIT-C) 1. How often do you have a drink containing alcohol?: Monthly or less 2. How many drinks containing alcohol do you have on a typical day when you are drinking?: 1 or 2 3. How often do you have six or more drinks on one occasion?: Never Total Score: 1 PAOLA-7 AMB Questionnaire PAOLA-7 Date PAOLA - 7 assessed: 06/06/23 Feeling nervous, anxious, or on edge: 0 = Not at all Not being able to stop or control worryin = Not at all Worrying too much about different things: 0 = Not at all Trouble relaxin = Not at all Being so restless that it is hard to sit still: 0 = Not at all Becoming easily annoyed or irritable: 0 = Not at all Feeling afraid as if something awful might happen: 0 = Not at all Total PAOLA-7 score (0-4 normal; 5-9 mild; 10-14 moderate; 15-21 severe): 0 Source: Developed by Drs. Yg Israel, Germaine Nava, Good Kwong and colleagues, with an educational dontae from [employer]. Review of Systems Const Denies chills, Denies fatigue, Denies fever(s), Denies headache(s) and Denies weakness ENT Denies dizziness and Denies headache(s) Card Denies dyspnea Resp Denies cough, Denies dyspnea, Denies wheezing and Denies other (shortness of breath) Musc Denies numbness and Denies tingling Neuro Denies dizziness, Denies headache(s), Denies numbness, Denies tingling and Denies weakness Psych Denies anxiety and Denies depression Endo Denies fatigue Aller/Immun Denies wheezing Physical exam (Primary Care) Vital Signs: Last Vital Signs Temp 98.4 F 04/14/24 14:31 Pulse 94 04/14/24 14:31 Resp 14 04/14/24 14:31 BP 110/70 04/14/24 14:31 Pulse Ox 96 04/14/24 14:31 Oxygen Delivery Method Room Air 04/14/24 14:31 BMI result Body Mass Index 25.4 Tobacco/Smoking Status: Tobacco use Status Tobacco use date assessed 09/05/23 04/14/24 14:29 Patient Tobacco Use Status Never used Tobacco 04/14/24 14:29 e-Cigarette/Vaping Use Never Used 04/14/24 14:29 PHQ-9: PHQ-9 Score PHQ-9: Total score 0 04/14/24 14:37 Thrive Assessment: Date of Thrive Assessment Date Thrive assessed 04/08/24 04/14/24 14:29 Currently or been in a relationship where the following occur: No concerns reported Const General: well developed; No acute distress Nutritional Appearance: well nourished Orientation/consciousness: patient oriented x3 [facility] Head: Yes normocephalic and Yes atraumatic Eyes General: appearance normal, both eyes and all related structures Pupils: Equal, round and reactive pupils present EOM: EOMs intact bilaterally Resp Effort & Inspection: normal respiratory effort Neuro General: patient oriented x3 and gait normal Cranial nerves: Yes Equal, round and reactive pupils present Psych Affect: normal affect Coding Level of Care Code Est Pt Level 4 (18806) Diagnoses Essential hypertension I10 Hyponatremia E87.1 Hyperlipidemia E78.5 Elevated liver enzymes R74.8 Elevated fasting blood sugar R73.01 Assessment & Plan Assessment & Plan (1) Essential hypertension: Code(s): I10 - Essential (primary) hypertension Category: Medical Plan: Blood?pressure?is?well?controlled.??Goal?is?less?than?140/90 Continue?current?medications (2) Hyponatremia: Code(s): E87.1 - Hypo-osmolality and hyponatremia Category: Medical Plan: Mild Will?recheck?labs?with?next?blood?draw Encouraged?regular?meals and?good?hydration (3) Hyperlipidemia: Code(s): E78.5 - Hyperlipidemia, unspecified Category: Medical Plan: Lipids?are?well?controlled?on?atorvastatin?40?mg?daily LDL?goal?is?less?than?100.??Well-controlled (4) Elevated liver enzymes: Code(s): R74.8 - Abnormal levels of other serum enzymes Category: Medical Plan: Mildly?elevated?liver?enzymes Patient?has?gained?a?few?lb?and?I?encouraged?some?weight?loss?and?good?hydration (5) Elevated fasting blood sugar: Code(s): R73.01 - Impaired fasting glucose Category: Medical Plan: Mildly?elevated?fasting?blood?sugars?and?patient?has?gained?a?few?lb Encouraged?a?diet?lower?in?sugars?and?starches Encouraged?mild?weight?loss Orders: Orders Microalbumin, Random (w Creat) Today I10 - Essential (primary) hypertension Triiodothyronine T3 Total Today E03.9 - Hypothyroidism, unspecified Free T4 (Free Thyroxine) Today E03.9 - Hypothyroidism, unspecified Thyroid Stimulating Hormone Today E03.9 - Hypothyroidism, unspecified Comprehensive [place]. Panel Fast Today Z00.00 - Encounter for general adult medical examination without abnormal findings Hemoglobin A1c Today R73.01 - Impaired fasting glucose Medications: Changed From omeprazole 40 mg PO DAILY 90 days 90 caps 2RF To omeprazole 20 mg PO DAILY Refilled lisinopril 20 mg PO DAILY 90 days 90 tabs 3RF
[2024-04-14 14:31] VITALS: BP 110/70; PULSE 94; RESP 14; TEMP 36.9; O2SAT 96; BMI 25.4
== END 2024-04-14 16:34 | disposition home or self-care (01) ==
PROVIDERS: PCP Family Medicine; Visit Provider Family Medicine
DX: I10 Essential (primary) hypertension (principal); E87.1 Hypo-osmolality and hyponatremia; E78.5 Hyperlipidemia, unspecified; R74.8 Abnormal levels of other serum enzymes; R73.01 Impaired fasting glucose

== ENCOUNTER 2024-08-24 06:36 | Outpatient (REF) | payer BC, SELFPAY ==
[2024-08-24 10:44] LABS: Estimated Average Glucose 114 mg/dL; Hemoglobin A1c % 5.6 % (<6.0)
[2024-08-24 10:51] LABS: Alanine Aminotransferase 39 U/L (0-40); Albumin Level 4.4 g/dL (3.5-5.0); Alkaline Phosphatase 60 U/L (39-117); Anion Gap 9 (12-20); Aspartate Amino Transferase 35 U/L (5-37); Bilirubin Total 1.2 mg/dL (0.0-1.0); Blood Urea Nitrogen 18 mg/dL (9-16); Calcium 9.1 mg/dL (8.4-10.2); Carbon Dioxide 30 mmol/L (22-29); Chloride 103 mmol/L (96-108); Estimated Glomerular Filt Rate > 60; Glucose Fasting 104 mg/dL (60-99); Sodium 138 mmol/L (135-145); Total Protein 6.9 g/dL (6.5-8.0)
[2024-08-24 11:12] LABS: Free T4 (Free Thyroxine) 1.02 ng/dL (0.71-1.85); Thyroid Stimulating Hormone 2.19 uIU/mL (0.32-4.0)
[2024-08-24 11:23] LABS: Creatinine Urine 122.31 mg/dL; Microalbum/Creatinine Ratio Ur 4.9 ug/mg cr (<30)
[2024-08-25 04:28] LABS: Triiodothyronine T3 Total 93 ng/dL (76-181)
== END 2024-08-24 06:37 | disposition home or self-care (01) ==
LOC: HO.HMGCLDS 06:36
PROVIDERS: PCP Family Medicine; Visit Provider Family Medicine
DX: Z00.00 Encounter for general adult medical examination without abnormal findings (principal); E03.9 Hypothyroidism, unspecified; R73.01 Impaired fasting glucose; I10 Essential (primary) hypertension
CPT/HCPCS: 36415; 80053; 82043; 82570; 83036; 84439; 84443; 84480

== ENCOUNTER 2024-08-31 14:55 | Outpatient (AMB) | payer BC, SELFPAY ==
--- NOTE | 2024-08-31 15:00 | A.OFFPC_ITS ---
Vital Signs 08/31/24 15:04 08/31/24 15:33 Height 5 ft 10 in Weight 185 lb 6 oz BMI 26.6 BP 122/70 Blood Pressure Location Lt brachial Position Sitting Respiration 12 Pulse 103 H 90 Pulse Source Pulse Oximeter Auscultation Temp 97.6 F Temp Source Oral Pulse Oximetry (%) 97 Oxygen Delivery Method Room Air Intake Visit Reasons: cpe Intake Note: CPE. Patient c/o fingers on right hand getting stuck x 3 weeks Insert Cutter Required: No Allergies Seasonal Allergies Allergy (Verified 08/31/24 15:15) sneezing Medication List - Last Reconciled 08/31/24 by Abril Orourke, DIE STORAGE CLERK- atorvastatin 40 mg PO BEDTIME 30 days hydrochlorothiazide 25 mg PO QAM 30 days levothyroxine 25 mcg PO DAILY 90 days lisinopril 20 mg PO DAILY 90 days omeprazole 20 mg PO DAILY Tobacco use date assessed: 08/31/24 Dental Screening Dental Screen Date: 08/31/24 Did you have a dental visit in the last 12 months?: Yes Did you have a dental problem in the last 6 months where you did not have access to dental care?: No Was dental information given to patient?: Patient has dentist HPI HPI Comments History of Present Illness Details History of Present Illness - The patient is a 59 year old male pres enting for a comprehensive physical examination. - Reports trigger finger in the right magallanes nd, exacerbated by furniture building, lasting weeks. - Chronic conditions: hyperlipidemia, hy pertension, hypothyroidism, GERD. - Laboratory history: low sodium (now re solved), prediabetes with rising A1c, previous elevated bilirubin, normalized liver enzymes. - Recent cholesterol level was at goal i n March. - Weight gain due to diet changes from r ecent social occasions. - History of shingles, single lesion wit h numbness and pain. - Blood clot in right leg, no recurrence reported. Family hx: Denies any changes Surgical hx: Denoes changes Social: No changes. 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 - Reports recent weight gain due to atte nding numerous social events such as weddings and graduations. - Uses hearing protection in his worksho p. - Has been managing weight with exercise . Health Maintenance - Tetanus vaccination administered today . - Eye exams are regularly performed ever y two years, with last exam at the beginning of 2023. - Up-to-date on colonoscopy screening, l ast completed in 2023. - Seasonal allergy management discussed. - Annual wellness checks and lab results monitoring explored, including thyroid function and cholesterol levels. Review of Systems - Constitutional: Denies changes in gene ral state of health, fever, or chills. - Head, Eyes, Ears, Nose, Throat (HEENT) : Denies changes in vision or hearing loss. - Cardiovascular: Denies palpitations an d chest pain. - Respiratory: Denies respiratory issues . - Gastrointestinal (GI): Denies abdomina l pain or bowel movement changes. - Musculoskeletal: Reports right hand tr igger finger but denies joint pain otherwise. - Neurological: Denies dizziness and wea kness. - Integumentary: Denies rash or other sk in changes. - Psychiatric: Depression and anxiety sc reens negative. Physical Exam General: Well developed, well nourished, in no acute distress. Appears stated age. Head: Normocephalic, atraumatic. Eyes: Pupils are equal, round and reactive to light and accommodation. Conjunctivae are clear. Vision grossly normal. Ears: TMs clear AU, EACS WNL. Nose: Patent, without discharge. Neck: Supple, no adenopathy or thyromegaly. No pain or tenderness upon swallowing. Breast: Edu on SBE Lungs: Clear to auscultation bilaterally. No rales, rhonchi or wheeze noted. Good air flow in all carlos. Heart: Regular rate and rhythm. No murmurs, click, rubs or gallops are noted. Abdomen: Bowel sounds present in all quadrants. The abdomen is soft, nontender, with no masses or organomegaly noted. No hernias are noted. No belly pain reported. : Deferred. Reviewed HANS & recommendations Pulses: Peripheral pulses are equal and palpable bilaterally. Extremities: No clubbing, cyanosis nor edema is noted. Trigger finger R middle finger Neurologic: Gait and station normal. Cranial Nerves 2-12 intact. Motor strength grossly symmetrical and intact. No sensory loss. Balance normal. Skin: No rashes, ulcers, or lesions noted. Turgor is good. Skin color is good. Hair and nails are without abnormalities. Presence of zavala angiomas noted. Psych: Normal eye contact, affect and mood appropriate, and normal interactions. Patient is alert and appropriate to context. Results 08/24/24 - Labs: - TSH normal. - Electrolytes normal, sodium corrected to 138. - Fasting blood sugar elevated, previous 102, now 104. - HbA1c increased, previous 5.2, now 5.6 . - Elevated bilirubin now lowest at 1.2, normalized liver enzymes. - Tests/Procedures: - Colonoscopy up to date, done in 2023. - Prostate hormone level check last in J anuary, normal. Discussion Notes I discussed with the patient his current health status, including the stable management of chronic conditions such as hypertension, hyperlipidemia, and hypothyroidism. For trigger finger, I recommended evaluation by a hand specialist at [facility] and discussed possible interventions such as injections or corrective surgeries if his condition worsened. I emphasized conservative options like using a warm compress, splinting at night, and occupational therapy. I explained the importance of monitoring lab results, especially with his A1c trending upwards and the need for strict diet and weight management considering recent weight gain. We reviewed his recent tetanus vacc ination and confirmed ongoing health maintenance measures such as eye exams and colonoscopy screenings. He consented to have future labs completed prior to his follow-up appointments. I advised on the necessity of regular physical activity and dietary modifications to prevent the progression of pre-diabetes. We concluded the visit by ensuring he understood when to follow up or seek care if his conditions change. Assessment and Plan 1. Hyperlipidemia - Continue atorvastatin. - Labs reviewed in visits. 2. Essential Hypertension - Continue medications. - Blood pressure monitoring. 3. Hypothyroidism - Maintain levothyroxine. - Routine thyroid check. 4. Gastroesophageal Reflux Disease - Continue omeprazole. - Monitor diet. 5. Trigger Finger, R middle - Consider splinting. - Referral PRN 6. Pre-diabetes - Review diet/exercise. 7. Elevated Bilirubin - Improving 8. Seasonal Allergies - Continue managing. 9. Blood Clot History - No action needed. 10. Wellness - Tetanus administered. Patient Instructions - Continue current medications as prescr ibed. - Monitor blood sugar levels and adhere to a prescribed diet; implement an exercise routine. - Use a splint on the right hand during nighttime to alleviate trigger finger symptoms; consider therapy if symptoms worsen. - Return for follow-up appointments as s cheduled and seek care if experiencing a change in symptoms or health status. - Maintain routine vaccinations and scre ening exams like tetanus and colonoscopy. RTO 6 MONTHS WITH PCP HTN, HLD, HYPOTHYROID FU WITH LABS , SOONER PRN Consent Patient was informed and verbally consented to the use of an ambient scribe for clinic note documentation during this visit. An additional 30 minutes was spent addressing the problem(s) noted at todays visit. This includes time spent before the visit reviewing the chart, time spent during the visit, and time spent after the visit on documentation PFS Medical History (Updated 08/31/24 @ 18:10 by Abril Orourke, [facility]-) KIERAN Scherer Surgical History (Updated 08/31/24 @ 15:14 by Abril Orourke, [facility]-) History of colonoscopy (~2023) History of vasectomy History of wisdom tooth extraction Social History Housing: House Patient Tobacco Use Status: Never used Tobacco e-Cigarette/Vaping Use: Never Used Second Hand Smoke Exposure: No service: No Current occupational status: employed 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 1. Little interest or pleasure in doing things: not at all 2. Feeling down, depressed, or hopeless: not at all 3. Trouble falling or staying asleep, or sleeping too much: not at all 4. Feeling tired or having little energy: not at all 5. Poor appetite or overeating: not at all 6. Feeling bad about yourself - or that you are a failure or have let yourself or your family down: not at all 7. Trouble concentrating on things, such as reading the newspaper or watching television: not at all 8. Moving or speaking so slowly that other people could have noticed. Or the opposite - being so fidgety or restless that you have been moving around a lot more than usual: not at all 9. Thoughts that you would be better off or of hurting yourself in some way: not at all Total score: 0 Depression Screening Interpretation: Negative Depression Screening Done: Yes 71545 - PHQ-9 Billing: Yes Source: Developed by Drs. Yg Israel, Germaine Nava, Good Kwong and colleagues, with an educational dontae from [employer]. Thrive Questionnaire Date Thrive assessed: 08/31/24 I am a: Patient What is your living situation today?: I have a steady place to live Within the past 12 months, did the food you bought not last and you didn't have the money to get more?: Never true Within the past 12 months, did you worry whether your food would run out before you got money to buy more?: Never true Do you have trouble paying for medicines?: No Do you have trouble getting transportation to medical appointments?: No Do you have trouble paying your heating and electricity bill?: No Do you have trouble taking care of your child, family member or friend?: No Do you have trouble with day-to-day activities such as bathing, preparing meals, shopping, managing finances, etc.?: No Are you currently unemployed and looking for a job?: No Are you interested in more education?: No Please select the resources that you would like help with: None Currently or been in a relationship where the following occur: No concerns reported THRIVE Score: 0 AUDIT C Alcohol Use Questionnaire (AUDIT-C) 1. How often do you have a drink containing alcohol?: Never 3. How often do you have six or more drinks on one occasion?: Never Total Score: 0 Score Reviewed/Action Taken: Yes PAOLA-7 AMB Questionnaire PAOLA-7 Date PAOLA - 7 assessed: 08/31/24 Feeling nervous, anxious, or on edge: 0 = Not at all Not being able to stop or control worryin = Not at all Worrying too much about different things: 0 = Not at all Trouble relaxin = Not at all Being so restless that it is hard to sit still: 0 = Not at all Becoming easily annoyed or irritable: 0 = Not at all Feeling afraid as if something awful might happen: 0 = Not at all Total PAOLA-7 score (0-4 normal; 5-9 mild; 10-14 moderate; 15-21 severe): 0 Source: Developed by Germaine Ashford, Good Kwong and colleagues, with an educational dontae from [employer]. PAOLA-7 Assessment Billing PAOLA-7 Assessment Tool: PAOLA-7 Assessment 70642 Physical exam (Primary Care) Vital Signs: Last Vital Signs Temp 97.6 F 08/31/24 15:04 Pulse 90 08/31/24 15:33 Resp 12 08/31/24 15:04 BP 122/70 08/31/24 15:04 Pulse Ox 97 08/31/24 15:04 Oxygen Delivery Method Room Air 08/31/24 15:04 BMI result Body Mass Index 26.6 Tobacco/Smoking Status: Tobacco use Status Tobacco use date assessed 08/31/24 08/31/24 15:05 Patient Tobacco Use Status Never used Tobacco 08/31/24 15:05 e-Cigarette/Vaping Use Never Used 08/31/24 15:05 PHQ-9: PHQ-9 Score PHQ-9: Total score 0 08/31/24 15:16 Depression Screening Interpretation: Negative Thrive Assessment: Date of Thrive Assessment Date Thrive assessed 08/31/24 08/31/24 15:05 Currently or been in a relationship where the following occur: No concerns reported Immunizations Boostrix Tdap 2.5 Lf unit-8 mcg-5 Lf/0.5 mL intramuscular syringe Performing Provider: RUTH Shin Performing Location: [facility] Administered by: Azalia Bhandari MA on 08/31/24 15:10 Dose Route Admin Location Dispensed Lot Number Expiration Date [employer] 0.5 mL IM Left Deltoid 0.5 mL [id number] 11/10/26 05108-866-10 [employer] VIS Given Date VIS Provided VIS Publication Date 08/31/24 Single Vaccine 20 Eligibility Eligibility Date Funding Source Not [facility] Eligible 08/31/24 Private Results Reviewed Results Reviewed: RUN: 08/31/24 1516 PAGE 1 [facility] [address] [place] [id number] Classifying Machine Operator: Lio Flores M.D. Specimen Inquiry Name: Silverio Seymour Age/Sex: 59/M : 1965 Unit#: [id number] Attend Dr: Lio Trinh MD Re08/24/24 Status: DEP REF Location: [facility] Disch: SPEC : [id number] MAO: 08/24/24 STATUS: COMP REQ : [id number] RECD: 08/24/24-[address]: Lio Trinh MD COMP: 08/24/24-1111 ENTERED: 08/24/[address]: ORDERED: CMP Fast, Free T4, TSH Test Result Flag Reference Sodium 138 135-145 mmol/L Potassium 4.0 3.3-5.1 mmol/L CL 103 96-108 mmol/L CO2 30 H 22-29 mmol/L Gap 9 L 12-20 BUN 18 H 9-16 mg/dL Creat 0.98 0.5-1.4 mg/dL eGFR > 60 Chronic Kidney Disease: Estimated GFR < 60 mL/min/1.73m2 Severe Kidney Disease: Estimated GFR < 15 mL/min/1.73m2 FBS 104 H 60-99 mg/dL A fasting glucose from 100-125 mg/dl is considered impaired (pre-diabetes). CA 9.1 # 8.4-10.2 mg/dL Total Bili 1.2 H 0.0-1.0 mg/dL AST (GOT) 35 5-37 U/L ALT (GPT) 39 0-40 U/L Protein, Total 6.9 6.5-8.0 g/dL Alb 4.4 3.5-5.0 g/dL Alk Phos 60 39-117 U/L Free T4 1.02 0.71-1.85 ng/dL TSH 3rd Gen. 2.19 0.32-4.0 uIU/mL TSH 3rd Generation ([facility]) Coding Level of Care Code Est Pt Level 4 (84036) Est Pt Prev Care 40-64y(18606) Diagnoses Adult general medical exam Z00.00 Need for Tdap vaccination Z23 Essential hypertension I10 Mixed hyperlipidemia E78.2 Hyperlipidemia type: mixed hyperlipidemia Acquired hypothyroidism E03.9 Hypothyroidism type: acquired Pre-diabetes R73.03 Trigger finger, right middle finger M65.331 Additional Codes PAOLA-7 Assessment Billing - PAOLA-7 Assessment Tool: PAOLA-7 Assessment 40161 ([id number]) PHQ-9 - 91651 - PHQ-9 Billing: Yes ([id number]) Assessment & Plan Assessment & Plan (1) Adult general medical exam: Onset Date: ~08/31/24 Code(s): Z00.00 - Encounter for general adult medical examination without abnormal findings Category: Medical (2) Need for Tdap vaccination: Code(s): Z23 - Encounter for immunization Category: Medical (3) Essential hypertension: Code(s): I10 - Essential (primary) hypertension Category: Medical (4) Hyperlipidemia: Code(s): E78.5 - Hyperlipidemia, unspecified Category: Medical Qualifiers: Hyperlipidemia type: mixed hyperlipidemia Qualified Code(s): E78.2 - Mixed hyperlipidemia (5) Hypothyroidism: Code(s): E03.9 - Hypothyroidism, unspecified Category: Medical Qualifiers: Hypothyroidism type: acquired Qualified Code(s): E03.9 - Hypothyroidism, unspecified (6) Pre-diabetes: Code(s): R73.03 - Prediabetes Category: Medical (7) Trigger finger, right middle finger: Code(s): M65.331 - Trigger finger, right middle finger Category: Medical Plan . Orders: Orders Comprehensive Harrison. Panel Fast 6 Months E03.9 - Hypothyroidism, unspecified, E78.5 - Hyperlipidemia, unspecified, I10 - Essential (primary) hypertension Lipid Panel 6 Months E03.9 - Hypothyroidism, unspecified, E78.5 - Hyperlipidemia, unspecified, I10 - Essential (primary) hypertension TSH reflex Free T4 6 Months E03.9 - Hypothyroidism, unspecified, E78.5 - Hyperlipidemia, unspecified, I10 - Essential (primary) hypertension TDaP Immunization Today Z23 - Encounter for immunization Hemoglobin A1c 6 Months E03.9 - Hypothyroidism, unspecified, E78.5 - Hyperlipidemia, unspecified, I10 - Essential (primary) hypertension Medications: Refilled levothyroxine 25 mcg PO DAILY 90 tabs 3RF 90 days Patient Instructions: Health screenings for men You should visit your health care provider regularly, even if you feel healthy. The purpose of these visits is to: Screen for medical issues Assess your risk for future medical problems Encourage a healthy lifestyle Update vaccinations and other preventive care services Help you get to know your provider in case of an illness Information Even if you feel fine, you should still see your provider for regular checkups. These visits can help you avoid problems in the future. For example, the only way to find out if you have high blood pressure is to have it checked regularly. High blood sugar and high cholesterol level also may not have any symptoms in the early stages. Simple blood tests can check for these conditions. There are specific times when you should see your provider or receive specific health screenings. The [place] Preventive Services Task Force publishes a list of recommended screenings. Below are screening guidelines for men ages 40 to 64. BLOOD PRESSURE SCREENING Have your blood pressure checked at least once every year. Watch for blood pressure screenings in your area. Ask your provider if you can stop in to have your blood pressure checked. Ask your provider if you need your blood pressure checked more often if: You have diabetes, heart disease, kidney problems, or are overweight or have certain other health conditions You have a first-degree relative with high blood pressure You are Black Your blood pressure top number is from 120 to 129 mm Hg, or the bottom number is from 70 to 79 mm Hg If the top number is 130 mm Hg or greater or the bottom number is 80 mm Hg or greater, this is considered stage 1 hypertension. Schedule an appointment with your provider to learn how you can lower your blood pressure. Effects of age on blood pressure CHOLESTEROL SCREENING Cholesterol screening should begin at age 35 for men with no known risk factors for coronary heart disease. Repeat cholesterol screening should take place: Every 5 years for men with normal cholesterol levels More often if changes occur in lifestyle (including weight gain and diet) More often if you have diabetes, heart disease, kidney problems, or certain other conditions COLORECTAL CANCER SCREENING If you are under age 45, talk to your provider about getting screened. You may need to be screened if you have a strong family history of colon cancer or polyps. Screening may also be considered if you have risk factors such as a history of inflammatory bowel disease or polyps. If you are age 45 to 75, you should be screened for colorectal cancer. There are several screening tests available: A stool-based fecal occult blood (gFOBT) or fecal immunochemical test (FIT) every year A stool sDNA test every 1 to 3 years Flexible sigmoidoscopy every 5 years or every 10 years with stool testing FIT done every year CT colonography (virtual colonoscopy) every 5 years Colonoscopy every 10 years You may need a colonoscopy more often if you have risk factors for colorectal cancer, such as: Ulcerative colitis A personal or family history of colorectal cancer A history of growths in your colon called adenomatous polyps DENTAL EXAM Go to the dentist once or twice every year for an exam and cleaning. Your dentist will evaluate if you have a need for more frequent visits. DIABETES SCREENING All adults who do not have risk factors for diabetes should be screened starting at age 35 and repeated every 3 years. If you have other risk factors for diabetes, such as a first degree relative with diabetes, overweight or obesity, high blood pressure, prediabetes, or a history of heart disease, you may be tested more often. If you are overweight and have other risk factors, such as high blood pressure and are planning to become , screening is recommended. EYE EXAM Have an eye exam every 2 to 4 years ages 40 to 54 and every 1 to 3 years ages 55 to 64. Your provider may recommend more frequent eye exams if you have vision problems or glaucoma risk. Have an eye exam that includes an examination of your retina (back of your eye) at least every year if you have diabetes. IMMUNIZATIONS Commonly needed vaccines include: Flu shot: get one every year COVID-19 vaccine: ask your provider what is best for you Tetanus-diphtheria and acellular pertussis (Tdap) vaccine: have as one of your tetanus-diphtheria vaccines if you did not receive it as an adolescent Tetanus-diphtheria: have a booster (or Tdap) every 10 years Varicella vaccine: receive 2 doses if you never had chickenpox or the varicella vaccine and were born in 1979 or after Hepatitis B vaccine: receive 2, 3, or 4 doses, depending on your exact circumstances, if you did not receive these as a child or adolescent, until age 59 Shingles (herpes zoster) vaccine: at or after age 50 Ask your provider if you should receive other immunizations, especially if you have certain medical conditions, such as diabetes or are at increased risk for some diseases such as pneumonia. INFECTIOUS DISEASE SCREENING Screening for hepatitis C: all adults ages 18 to 79 should get a one-time test for hepatitis C. Screening for human immunodeficiency virus (HIV): all people ages 15 to 65 should get a one-time test for HIV. Depending on your lifestyle and medical history, you may need to be screened for infections such as syphilis, chlamydia, and other infections. LUNG CANCER SCREENING You should have an annual screening for lung cancer with low-dose computed tomography (LDCT) if: You are age 50 to 80 years AND You have a 20 pack-year smoking history AND You currently smoke or have quit within the past 15 years OSTEOPOROSIS SCREENING If you are age 50 to 64 and have risk factors for osteoporosis, you should discuss screening with your provider. Risk factors can include long-term steroid use, low body weight, smoking, heavy alcohol use, having a fracture after age 50, or a family history of hip fracture or osteoporosis. Osteoporosis PHYSICAL EXAM All adults should visit their provider from time to time, even if they are healthy. The purpose of these visits is to: Screen for diseases Assess risk of future medical problems Encourage a healthy lifestyle Update vaccinations and other preventive care services Maintain a relationship with a provider in case of an illness Your height, weight, and body mass index (BMI) should be checked at every exam. During your exam, your provider may ask you about: Depression and anxiety Diet and exercise Alcohol and tobacco use Safety, such as use of seat belts and smoke detectors Your medicines and risk for interactions PROSTATE CANCER SCREENING If you're 55 through 69 years old, before having the test, talk to your provider about the pros and cons of having a PSA test. Ask about: Whether screening decreases your chance of dying from prostate cancer. Whether there is any harm from prostate cancer screening, such as side effects from testing or overtreatment of cancer when discovered. Whether you have a higher risk of prostate cancer than others. If you are age 55 or younger, screening is not generally recommended. You should talk with your provider about if you have a higher risk for prostate cancer. Risk factors include: Having a family history of prostate cancer (especially a brother or father) Being If you choose to be tested, the PSA blood test is repeated over time (yearly or less often), though the best frequency is not known. Prostate examinations are no longer routinely done on men with no symptoms. Prostate cancer SKIN EXAM Your provider may check your skin for signs of skin cancer, especially if you're at high risk. People at high risk include those who have had skin cancer before, have close relatives with skin cancer, or have a weakened immune system. TESTICULAR EXAM The [place] Preventive Services Task Force (USPSTF) now recommends against performing testicular self-exams. Doing testicular self-exams has been shown to have little to no benefit.
[2024-08-31 15:04] VITALS: BP 122/70; PULSE 103; RESP 12; TEMP 36.4; O2SAT 97; BMI 26.6
[2024-08-31 15:33] VITALS: PULSE 90
== END 2024-08-31 15:34 | disposition home or self-care (01) ==
LOC: HO.HMCFM 14:56
PROVIDERS: PCP Family Medicine; Visit Provider Nurse Practitioner Family
DX: Z00.00 Encounter for general adult medical examination without abnormal findings (principal); I10 Essential (primary) hypertension; E78.2 Mixed hyperlipidemia; E03.9 Hypothyroidism, unspecified; R73.03 Prediabetes; M65.331 Trigger finger, right middle finger; Z23 Encounter for immunization

== ENCOUNTER → 2024-08-31 14:55 | Outpatient (BNVA) | payer BC, SELFPAY | PROVIDERS: PCP Family Medicine; Visit Provider Nurse Practitioner Family | DX: Z00.00 Encounter for general adult medical examination without abnormal findings (principal); I10 Essential (primary) hypertension; E03.9 Hypothyroidism, unspecified; K21.9 Gastro-esophageal reflux disease without esophagitis; M65.331 Trigger finger, right middle finger; R73.03 Prediabetes; J30.2 Other seasonal allergic rhinitis; E78.2 Mixed hyperlipidemia; Z23 Encounter for immunization | CPT/HCPCS: 90471; 90715; 96127 ==

== ENCOUNTER 2025-02-07 06:50 | Outpatient (REF) | payer BC, SELFPAY ==
[2025-02-07 10:46] LABS: Alanine Aminotransferase 53 U/L (0-40); Albumin Level 4.6 g/dL (3.5-5.0); Alkaline Phosphatase 66 U/L (39-117); Anion Gap 11 (12-20); Aspartate Amino Transferase 45 U/L (5-37); Blood Urea Nitrogen 18 mg/dL (9-16); Calcium 8.9 mg/dL (8.4-10.2); Carbon Dioxide 28 mmol/L (22-29); Chloride 102 mmol/L (96-108); Cholesterol 165 mg/dL (<200); Estimated Glomerular Filt Rate > 60; HDL Cholesterol 51 mg/dL (>40); Potassium 4.0 mmol/L (3.3-5.1); Sodium 137 mmol/L (135-145); Total Protein 7.1 g/dL (6.5-8.0); Triglycerides 81 mg/dL (<150)
== END 2025-02-07 06:51 | disposition home or self-care (01) ==
LOC: HO.HMGCLDS 06:50
PROVIDERS: PCP Family Medicine; Visit Provider Nurse Practitioner Family
DX: I10 Essential (primary) hypertension (principal); E78.5 Hyperlipidemia, unspecified; E03.9 Hypothyroidism, unspecified; Z13.1 Encounter for screening for diabetes mellitus
CPT/HCPCS: 36415; 80053; 80061; 83036; 84443

== ENCOUNTER 2025-02-18 13:08 | Outpatient (AMB) | payer BC, SELFPAY ==
--- NOTE | 2025-02-18 13:14 | A.OFFPC_ITS ---
Vital Signs 02/18/25 13:17 Height 5 ft 10 in Weight 183 lb 2 oz BMI 26.3 BP 114/76 Blood Pressure Location Rt brachial Position Sitting Pulse 91 Pulse Source Pulse Oximeter Temp 97.2 F Temp Source Temporal Artery Scan Pulse Oximetry (%) 97 Oxygen Delivery Method Room Air Intake Visit Reasons: HTN/HLD/Hypothyroid fu labs 1 week before Intake Note: Silverio presents in the office today for a follow up to his lab results. 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 Allergies Seasonal Allergies Allergy (Verified 02/18/25 13:16) sneezing Medication List - Last Reconciled 02/18/25 by Lio Trinh MD atorvastatin 40 mg PO BEDTIME 30 days hydrochlorothiazide 25 mg PO QAM 30 days levothyroxine 25 mcg PO DAILY 90 days lisinopril 20 mg PO DAILY 90 days omeprazole 20 mg PO DAILY Tobacco use date assessed: 02/18/25 Dental Screening Dental Screen Date: 02/18/25 Did you have a dental visit in the last 12 months?: Yes Did you have a dental problem in the last 6 months where you did not have access to dental care?: No Was dental information given to patient?: Patient has dentist HPI HTN/HLD/Hypothyroid fu labs 1 week before HPI Details 59 y/o male presents to f/u HTN, HLD, la bs. Labs drawn 02/07/25. Reviewed labs with pt. Fasting glucose 103. A1c 5.8%. Elevated liver enzymes - AST 45, ALT 53. Notes he drinks EtOH rarely. Triglycerides 81. TC 165. LDL 98. HDL 51. TSH 3.08. He is on levothyroxine 25mcg daily. BP today 114/76, 91p. He is on lisinopril 20mg, HCTZ 25mg daily. Ongoing complaints of R hand pain and swelling. HPI Comments History of Present Illness Details Documentation assistance for Lio Trinh MD, was provided by Raphael Marie, [employer] on 02/18/2025 at 2:00 PM EST. I, Dr. Trinh, have read, observed, and verified documentation. [facility] Medical History (Updated 02/18/25 @ 14:06 by Raphael Marie) Shingles COVID Surgical History (Updated 08/31/24 @ 15:14 by Abril Orourke, [facility]) History of colonoscopy (~2023) History of vasectomy History of wisdom tooth extraction Social History (Updated 02/18/25 @ 13:17 by Nadia Rivero [facility]) Housing: House Alcohol intake: current Patient Tobacco Use Status: Never used Tobacco e-Cigarette/Vaping Use: Never Used Second Hand Smoke Exposure: No service: No Current occupational status: employed Current occupation: [employer] Current occupational exposures/hazards: No Cognitive needs: No Hearing needs: No Vision needs: No Questionnaire Thrive Questionnaire Date Thrive assessed: 04/08/24 I am a: Patient What is your living situation today?: I have a steady place to live Within the past 12 months, did the food you bought not last and you didn't have the money to get more?: Never true Within the past 12 months, did you worry whether your food would run out before you got money to buy more?: Never true Do you have trouble paying for medicines?: No Do you have trouble getting transportation to medical appointments?: No Do you have trouble paying your heating and electricity bill?: No Do you have trouble taking care of your child, family member or friend?: No Do you have trouble with day-to-day activities such as bathing, preparing meals, shopping, managing finances, etc.?: No Are you currently unemployed and looking for a job?: No Are you interested in more education?: No Please select the resources that you would like help with: None Currently or been in a relationship where the following occur: No concerns reported THRIVE Score: 0 PAOLA-7 AMB Questionnaire PAOLA-7 Date PAOLA - 7 assessed: 08/31/24 Source: Developed by Drs. Yg Israel, Germaine Nava, Good Kwong and colleagues, with an educational dontae from [employer]. Review of Systems Const Denies chills, Denies fatigue, Denies fever(s), Denies headache(s) and Denies weakness ENT Denies dizziness and Denies headache(s) Card Denies dyspnea Resp Denies cough, Denies dyspnea, Denies wheezing and Denies other (shortness of breath) Musc Denies numbness and Denies tingling Neuro Denies dizziness, Denies headache(s), Denies numbness, Denies tingling and Denies weakness Psych Denies anxiety and Denies depression Endo Denies fatigue Aller/Immun Denies wheezing Physical exam (Primary Care) Vital Signs: Last Vital Signs Temp 97.2 F 02/18/25 13:17 Pulse 91 02/18/25 13:17 BP 114/76 02/18/25 13:17 Pulse Ox 97 02/18/25 13:17 Oxygen Delivery Method Room Air 02/18/25 13:17 BMI result Body Mass Index 26.3 Tobacco/Smoking Status: Tobacco use Status Tobacco use date assessed 02/18/25 02/18/25 13:21 Patient Tobacco Use Status Never used Tobacco 02/18/25 13:17 e-Cigarette/Vaping Use Never Used 02/18/25 13:17 Thrive Assessment: Date of Thrive Assessment Date Thrive assessed 04/08/24 02/18/25 13:16 Currently or been in a relationship where the following occur: No concerns reported Const General: well developed; No acute distress Nutritional Appearance: well nourished Orientation/consciousness: patient oriented x3 HENMT Head: Yes normocephalic and Yes atraumatic Eyes General: appearance normal, both eyes and all related structures Pupils: Equal, round and reactive pupils present EOM: EOMs intact bilaterally Resp Effort & Inspection: normal respiratory effort Neuro General: patient oriented x3 and gait normal Cranial nerves: Yes Equal, round and reactive pupils present Psych Affect: normal affect Coding Level of Care Code Est Pt Level 4 (11300) Diagnoses Essential hypertension I10 Mixed hyperlipidemia E78.2 Hyperlipidemia type: mixed hyperlipidemia Pre-diabetes R73.03 Acquired hypothyroidism E03.9 Hypothyroidism type: acquired Elevated liver enzymes R74.8 Hand pain M79.643 Assessment & Plan Assessment & Plan (1) Essential hypertension: Code(s): I10 - Essential (primary) hypertension Category: Medical Plan: Blood pressure is well controlled. Goal is less than 140/90 Continue current medication (2) Hyperlipidemia: Code(s): E78.5 - Hyperlipidemia, unspecified Category: Medical Qualifiers: Hyperlipidemia type: mixed hyperlipidemia Qualified Code(s): E78.2 - Mixed hyperlipidemia Plan: Lipids are well controlled on atorvastatin 40 mg daily Continue atorvastatin (3) Pre-diabetes: Code(s): R73.03 - Prediabetes Category: Medical Plan: A1c has climbed to 5.8%. Pre diabetes range. Family history of diabetes-father though this was in more advanced age Continue working at a diet lower in sugars and starches Encouraged exercise and weight loss-patient notes that he has gained weight lately Will continue to monitor (4) Hypothyroidism: Code(s): E03.9 - Hypothyroidism, unspecified Category: Medical Qualifiers: Hypothyroidism type: acquired Qualified Code(s): E03.9 - Hypothyroidism, unspecified Plan: TSH is within normal range His thyroid hormones have remained stable Continue levothyroxine 25 mcg daily as prescribed. (5) Elevated liver enzymes: Code(s): R74.8 - Abnormal levels of other serum enzymes Category: Medical Plan: Patient has elevated liver enzymes which have gone up and down. More recently has gained weight and liver enzymes are elevated again. He had an ultrasound 2 and half years ago which showed hepatic steatosis without focal mass. He also had elevated elastography consistent with compensated advanced chronic liver disease. Will repeat ultrasound. We discussed we may to investigate further or refer him to Gastroenterology Encouraged good hydration and weight loss (6) Hand pain: Code(s): M79.643 - Pain in unspecified hand Category: Medical Plan: Right hand pain and swelling with some catching of his fingers Appears to be a tendinopathy Encouraged ice/heat Relative rest Topical NSAIDs-he does not tolerate oral NSAIDs well. Offer to send diclofenac but patient would like to try OTC Aspercreme 1st. Check x-ray If not improving will consider referral to hand surgeon Orders: Orders XR hand RT min 3V Today M65.331 - Trigger finger, right middle finger, M79.643 - Pain in unspecified hand US abdomen hogan w elastography Today R74.8 - Abnormal levels of other serum enzymes
[2025-02-18 13:17] VITALS: BP 114/76; PULSE 91; TEMP 36.2; O2SAT 97; BMI 26.3
== END 2025-02-18 14:10 | disposition home or self-care (01) ==
LOC: HO.HMCFM 13:09
PROVIDERS: PCP Family Medicine; Visit Provider Family Medicine
DX: I10 Essential (primary) hypertension (principal); E78.2 Mixed hyperlipidemia; R73.03 Prediabetes; E03.9 Hypothyroidism, unspecified; R74.8 Abnormal levels of other serum enzymes; M79.643 Pain in unspecified hand